=== PATIENT | male | born 1930 | race Caucasian/White ===

== ENCOUNTER → 2019-02-11 | Outpatient (CLI) | payer OTHER, MEDICARE ==
[2019-02-11 13:05] LABS: HEMATOCRIT 31.9 % (42.0-52.0); MCH 25.9 pg (26.0-34.0); MCHC 31.5 g/dL (28.0-37.0); MCV 82.1 fL (80.0-100.0); RBC 3.88 mil/uL (4.50-6.00); WBC 5.7 thou/uL (4.0-11.0)
[2019-02-11 13:19] LABS: INR 1.1; PROTIME 11.4 Seconds (9.3-11.4)
[2019-02-11 14:34] LABS: BF NUCLEATED CELLS 407; BF RBC 267
[2019-02-11 14:38] LABS: COLOR YELLOW; TOTAL VOLUME 65 mL
[2019-02-11 14:39] LABS: CLARITY SL.CLOUDY
[2019-02-11 15:51] LABS: BF NEUTROPHILS 25; SOURCE THORACENTESIS
[2019-02-11 15:52] LABS: BF MACROPHAGE 18
[2019-02-12 08:37] LABS: SOURCE CHEST
[2019-02-13 10:06] LABS: BODY FLUID ALBUMIN 1.3 g/dL (()); BODY FLUID AMYLASE 32 U/L (()); BODY FLUID GLUCOSE 141 mg/dL (()); BODY FLUID LDH 97 IU/L (()); BODY FLUID PROTEIN 2.5 g/dL (())
--- NOTE | 2019-02-15 17:06 | PATH ---
[facility] [address] [place] [address] PATHOLOGY RPT PROCEDURE Name: MACARIO LACY Room #: REG JENNIFER Carrillo.Marcus.#: [id number] ������������������ Admission: 02/11/19 ������������������ Date of : [birth year] Discharge: Report #: [id number] Path Case #: [id number] Note [facility] Accession Number: [id number] TESTS RESULT FLAG UNITS REF RANGE LAB Clinician Provided Cytology Information No. of containers..01 Other (Miscellaneous) Source: LT PLEURAL FLUID DIAGNOSIS: LT PLEURAL FLUID NEGATIVE FOR MALIGNANT CELLS. REACTIVE MESOTHELIAL CELLS ARE PRESENT. THIS INTERPRETATION INCLUDES EVALUATION OF A CELL BLOCK. Pathologist ICD10: 02 J91.8 Signed out by: Sherri Starks MD, Pathologist NPI- [id number] Performed by: Geraldine Qiu, Vendor Representatives ([facility]) Gross description: 01 15ML, YELLOW, CLEAR /LCS FLAG LEGEND: L-Low Normal,H-High Normal,LL-Alert Low,HH-Alert High <-Panic Low,>-Panic High,A-Abnormal,AA-Critical Abnormal Performed at: 01 [facility] [address] [place] [address] [address] [place] [address] Gabe Quinones MD, [address] [id number] Sherri Starks MD, Specimen Comment: A courtesy copy of this report has been sent to Specimen Comment: [phone]. Specimen Comment: Report sent to Performed at: 01 [facility] [address] [place] [address] [address], [place], [place] [id number] MD Gabe Quinones MD Phone: [phone]
== END | disposition home or self-care (01) ==
LOC: ULTRA 12:36
PROVIDERS: Internal Medicine Geriatric Medicine
DX: J90 Pleural effusion, not elsewhere classified (principal)